=== PATIENT | female | born 1990 | race Caucasian/White ===

== ENCOUNTER 2023-03-29 09:13 | Observation (INO) | payer BC, SELFPAY ==
[2023-03-29 09:55] VITALS: BP 134/81; PULSE 91
[2023-03-29 10:00] VITALS: BP 134/89; PULSE 99
[2023-03-29 10:07] VITALS: BMI 31.2
--- NOTE | 2023-03-29 10:08 | LDADM ---
This patient, Carol Velarde, was admitted to [facility] on 03/29/23 at 09:13. Plans for labor, pain management and were discussed with patient. Patient/family oriented to hospital policies and general routines including ID bracelet, bed and alarms, visiting hours, pain management, procedures, bathroom and other care routines, personal items, smoking policy, room service/diet and guest tray routines, infant security routines, and visiting hours. Patient/Family are encouraged to report perceived risks to care and to ask questions if they do not understand what they are told or what they should do. See OBIX for further documentation.
[2023-03-29 10:12] LABS: Appearance Urine Clear (Clear); Bacteria Urine Rare /hpf; Bilirubin Urine Negative (Negative); Blood Urine Negative (Negative); Color Urine Yellow (Yellow); Glucose Urine UA Negative (Negative); Ketones Urine Negative (Negative); Leukocyte Esterase Ur Trace LEU/UL (Negative); Nitrate Urine Negative (Negative); Non Pathogenic Casts 0-2; Protein Urine Negative (Negative); RBC Urine 0-2 /hpf (0-2); Specific Grav Ur 1.008 (1.001-1.035); Squamous Epithelial Cell Urine None seen /hpf (Few); Urobilinogen Urine 0.2 mg/dL (<2.0); WBC Urine 0-5 /hpf; pH Urine 6.5 (5.0-9.0)
[2023-03-29 10:15] VITALS: BP 127/81; PULSE 89
[2023-03-29 10:30] VITALS: BP 127/76; PULSE 84
[2023-03-29 10:36] LABS: Fetal Fibronectin Negative
[2023-03-29 10:39] LABS: Add Urine Microscopic? YES
--- NOTE | 2023-03-29 10:47 | PC.NURSE ---
Patient admitted for observation with complaints of leaking fluid, abdominal cramping, and pressure. Orders received from office for ROM+, FFN, UA, and NST. Spoke on phone with CNM at 1044 regarding patient's lab/test results. Notified provider that patient has continuous uterine irritability with abdominal cramping she is rating 3/10 on the pain scale but tracing is reassuring. Verbal orders received for 30mg Procardia XL PO once and orders to perform a cervical check.
[2023-03-29] MEDS: NIFEdipine 30 MG TAB.ER.24 PO (10:53)
--- NOTE | 2023-03-29 12:11 | PC.NURSE ---
Patient has less uterine irritability per toco. Patient states the cramping has improved and isn't lasting as long as it was. Called CNM and verbal orders given for discharge with new prescription for 30 mg Procardia XL daily x7 days and to follow up with office in one week. Patient agrees with plan of care and has no questions at this time.
--- NOTE | 2023-04-01 17:08 | PM.OBTRLD ---
OB - Triage/Final Diagnosis Visit Information Date of evaluation: 03/29/23 Reason for evaluation: threatened labor Comments/Additional reasons for admission: I have assessed the risk for this patient, Carol Velarde, and determined that she would benefit from observation care. Evaluation Laboratory results: Laboratory Tests 03/29/23 09:43 Urine Color Yellow Urine Appearance Clear Urine pH 6.5 Ur Specific [place] 1.008 Urine Protein Negative Urine Glucose (UA) Negative Urine Ketones Negative Ur Blood (Man) Negative Urine Nitrate Negative Urine Bilirubin Negative Urine Urobilinogen 0.2 Leukocyte Esterase Rfl Trace H Urine RBC 0-2 Urine WBC 0-5 Ur Squamous Epith Cells None seen Urine Bacteria Rare Urine Casts 0-2 Fibronectin Negative
== END 2023-03-29 12:30 | disposition home or self-care (01) ==
PROVIDERS: Advanced Practice Midwife; Admitting Provider Obstetrics & Gynecology; PCP Physician Assistant; Visit Provider Obstetrics & Gynecology
DX: O47.03 False labor before 37 completed weeks of gestation, third trimester (principal); Z3A.32 32 weeks gestation of pregnancy
CPT/HCPCS: 81001; 82731; 84112; A9270; G0378; G0379

== ENCOUNTER 2023-05-01 12:31 | Outpatient (CLI) | payer BC, SELFPAY ==
[2023-05-01 13:08] LABS: Basophils Percent Auto 0.2 % (0.2-1.2); Eosinophils Absolute Auto 0.1 K/mm3 (0-0.3); Eosinophils Percent Auto 0.6 % (0-4.4); Hematocrit 36.6 % (37.0-47.0); Hemoglobin 11.7 g/dL (12.0-15.0); Immature Granulocyte Absolute 0.16 K/mm3 (0.00-0.031); Immature Granulocyte Percent A 1.2 % (0-0.5); Lymphocytes Absolute Auto 1.86 K/mm3 (0.9-3.2); Lymphocytes Percent Auto 14.4 % (18.3-44.2); Mean Corpuscular Hemoglobin 30.6 pg (26-34); Mean Corpuscular Volume 95.8 fl (80-100); Mean Platelet Volume 10.9 fl (7.4-10.4); Monocytes Absolute Auto 0.9 K/mm3 (0.1-0.6); Monocytes Percent Auto 6.7 % (2.6-8.5); Neutrophils Absolute Auto 9.9 K/mm3 (1.3-6.7); Neutrophils Percent Auto 76.9 % (45.5-73.1); Platelet Count Result 280 k/mm3 (150-375); Red Blood Count 3.82 M/mm3 (4.2-5.4); Red Cell Distribution Width 14.4 % (11.5-14.5); White Blood Count 12.9 K/mm3 (4.5-10.0)
[2023-05-01 13:16] VITALS: BP 118/82; PULSE 82
[2023-05-01 13:16] LABS: Alanine Aminotransferase 25 U/L (6-35); Albumin Level 3.6 g/dL (3.5-5.1); Alkaline Phosphatase 100 U/L (38-126); Anion Gap 10 mmol/L (8-16); Aspartate Amino Transferase 28 U/L (14-36); Bilirubin,Total 0.9 mg/dL (0.2-1.3); Blood Urea Nitrogen 12 mg/dL (7-17); Calcium 8.6 mg/dL (8.4-10.2); Carbon Dioxide 14 mmol/L (22-30); Chloride 105 mmol/L (98-107); Estimated Glomerular Filt Rate > 60; Glucose 114 mg/dL (65-110); Potassium 3.7 mmol/L (3.4-5.0); Sodium 129 mmol/L (137-145); Uric Acid 3.4 mg/dL (2.5-7.5)
[2023-05-01 13:17] LABS: Creatinine Urine 46.1 mg/dL; Total Protein Urine Random 14 mg/dL
[2023-05-01 13:19] LABS: Appearance Urine Cloudy (Clear); Bacteria Urine 2+ /hpf; Bilirubin Urine Negative (Negative); Blood Urine 2+ (Negative); Color Urine Yellow (Yellow); Glucose Urine UA Negative (Negative); Ketones Urine Negative (Negative); Leukocyte Esterase Ur 2+ LEU/UL (NEGATIVE); Need Manual Microscopic Reviewed; Nitrate Urine Negative (Negative); Protein Urine Negative (Negative); RBC Urine 0-2 /hpf (0-2); Specific Grav Ur 1.013 (1.001-1.035); Squamous Epithelial Cell Urine Occasional /hpf (Few); Urobilinogen Urine 0.2 mg/dL (<2.0); WBC Urine 21-50 /hpf (0-3)
[2023-05-01 13:20] LABS: Add Urine Microscopic? YES
[2023-05-01 13:30] VITALS: BP 122/80; PULSE 85
[2023-05-01 13:46] VITALS: BP 121/79; PULSE 66
[2023-05-01 14:01] VITALS: BP 127/82; PULSE 79
[2023-05-01 14:14] VITALS: BP 122/80; PULSE 85
== END 2023-05-01 14:16 | disposition home or self-care (01) ==
LOC: ANHOBOP 12:35 → ANHOBPP 12:36
PROVIDERS: PCP Physician Assistant; Visit Provider Obstetrics & Gynecology
DX: O13.9 Gestational [pregnancy-induced] hypertension without significant proteinuria, unspecified trimester (principal); Z3A.00 Weeks of gestation of pregnancy not specified
CPT/HCPCS: 36415; 59025; 80053; 81001; 82570; 84156; 84550; 85025; 87086; 99199

== ENCOUNTER 2023-05-03 06:00 | Inpatient (IN) | payer BC, SELFPAY ==
[2023-05-03] VITALS (145 sets, daily range): BP systolic 98–154; BP diastolic 55–107; PULSE 57–114; RESP 15–16; TEMP 36.6–37; O2SAT 98–100; BMI 32.5
--- NOTE | 2023-05-03 06:00 | LDADM ---
This patient, Carol Velarde, was admitted to Labor/Delivery/Recovery 109 on 05/03/23 at 06:00. Plans for labor, pain management and were discussed with patient. Patient/family oriented to hospital policies and general routines including ID bracelet, bed and alarms, visiting hours, pain management, procedures, bathroom and other care routines, personal items, smoking policy, room service/diet and guest tray routines, security routines, and visiting hours. Patient/Family are encouraged to report perceived risks to care and to ask questions if they do not understand what they are told or what they should do. See OBIX for further documentation.
[2023-05-03 07:17] LABS: Basophils Absolute Auto 0.1 K/mm3 (0.0-0.1); Basophils Percent Auto 0.4 % (0.2-1.2); Eosinophils Absolute Auto 0.1 K/mm3 (0-0.3); Eosinophils Percent Auto 0.7 % (0-4.4); Hemoglobin 11.2 g/dL (12.0-15.0); Immature Granulocyte Absolute 0.17 K/mm3 (0.00-0.031); Immature Granulocyte Percent A 1.4 % (0-0.5); Lymphocytes Absolute Auto 1.94 K/mm3 (0.9-3.2); Lymphocytes Percent Auto 16.1 % (18.3-44.2); Mean Corpuscular HGB Conc 32.9 g/dl (32-36); Mean Corpuscular Hemoglobin 31.4 pg (26-34); Mean Corpuscular Volume 95.2 fl (80-100); Mean Platelet Volume 11.1 fl (7.4-10.4); Monocytes Absolute Auto 0.9 K/mm3 (0.1-0.6); Monocytes Percent Auto 7.2 % (2.6-8.5); Neutrophils Percent Auto 74.2 % (45.5-73.1); Platelet Count Result 275 k/mm3 (150-375); Red Blood Count 3.57 M/mm3 (4.2-5.4); Red Cell Distribution Width 14.4 % (11.5-14.5); White Blood Count 12.1 K/mm3 (4.5-10.0)
[2023-05-03] MEDS: miSOPROStol 25 MCG TABLET VAGINAL ×2 (07:17→11:34)
--- NOTE | 2023-05-03 07:18 | PM.IMHP ---
H&P: HPI History of Present Illness Date/Time: 05/03/23 07:18 Chief Complaint: induction of labor Narrative: Carol is a 33yo G1 at 37.0 IOL for PreE. 24hr urine was 420. Denies SINHA/BV/EP, but has had some floaters for a couple days. Labs all normal except protein. Baby also followed for SGA, last 12%. GBS neg. Review of Systems Review of Systems: All systems reviewed & are unremarkable except as noted in HPI and below [facility] Family History Family History (Updated 04/29/23 @ 15:43 by Triny Celeste RN) Other Patient denies significant medical history Social History Social History Substance use: never Lack of Transportation: No Lack of Food: Never True Current Housing: I Have Housing Concerned About Future Housing: No Difficulty Paying Gas/Electric Bills: No Difficulty Paying for Meds: No Currently Unemployed: No Education: Associate Degree Difficulty w/ Childcare or Family Care: No Spiritual care concerns: No Meds Home Medications and Allergies Home Medications Medication Instructions Recorded Confirmed Type prenat.vits,mandi,[id number]-puzkw 1 tablet PO DAILY 03/29/23 03/29/23 History Allergies Allergy/AdvReac Type Severity Reaction Status Date / Time No Known Allergies Allergy Verified 03/29/23 10:12 Vital Signs Vital Signs - 24 hr 05/03/23 06:55 05/03/23 07:00 Pulse Rate 90 95 Blood Pressure 131/87 126/92 H Exam Const: General: no acute distress Resp: Effort & Inspection: normal respiratory effort Auscultation: clear to auscultation bilaterally Cardio: Rate: regular rate Rhythm: regular rhythm GI: GI Palp: Yes Soft to palpation Extrem: General: normal to inspection Assessment and Plan Assessment and plan (1) Pre-eclampsia, mild: Code(s): O14.00 - Mild to moderate pre-eclampsia, unspecified trimester Status: Acute (2) Encounter for induction of labor: Code(s): Z34.90 - Encounter for supervision of normal , unspecified, unspecified trimester Status: Acute Plan cytotec x2, hopefully then pitocin GBS neg FHT category 1 monitor for severe features for magnesium BPs wnl or mildly elevated so far labs pending this am
[2023-05-03 07:29] LABS: Uric Acid 3.9 mg/dL (2.5-7.5)
[2023-05-03 07:45] LABS: Alanine Aminotransferase 25 U/L (6-35); Albumin Level 3.3 g/dL (3.5-5.1); Alkaline Phosphatase 99 U/L (38-126); Anion Gap 8 mmol/L (8-16); Aspartate Amino Transferase 31 U/L (14-36); Bilirubin,Total 0.7 mg/dL (0.2-1.3); Blood Urea Nitrogen 11 mg/dL (7-17); Calcium 8.3 mg/dL (8.4-10.2); Carbon Dioxide 17 mmol/L (22-30); Chloride 109 mmol/L (98-107); Estimated Glomerular Filt Rate > 60; Glucose 124 mg/dL (65-110); Potassium 3.2 mmol/L (3.4-5.0); Sodium 134 mmol/L (137-145)
[2023-05-03 11:03] LABS: Rapid Plasma Reagin Non-Reactive (NonReactive)
--- NOTE | 2023-05-03 14:17 | PC.NURSE ---
0955 - Introductions were made and mother shared how she would like to feed her baby with and possibly pump/feed. Encouraged mother to place infant [id number] until the first feeding if is stable and to wait on the weight to help stabilize, reduce infant stress, and improve latching by allowing time to explore parent's chest using instincts. Education was shared on how to protect her milk supply with latching and/or using hand expression to remove milk if infant doesn't latch in the first hour, then finger feed colostrum to the infant to preserve breast focus. Demonstration given on how to hand express using tool. Resources provided with educational trifold for bonding and feeding . Parents voiced understanding of information and to call if there is a request for assistance.
[2023-05-03] MEDS: LACTATED RINGERS 1,000 ML 125 ML IV CONT ×3 (15:57→23:07)
--- NOTE | 2023-05-03 17:39 | WPDANESEPP ---
Anes - Eval Pre Procedure Procedure: Labor epidural Date/Time: 05/03/23 17:39 Surgeon: MINA Preop Diagnosis: Abdominal pain with contractions Pre Op Diagnosis: Induction of Labor Patient Data Age: 33 Gender: F Height: 1.55 m Weight: 78 kg Last Vital Signs Temp 97.9 F 05/03/23 09:58 Pulse 66 05/03/23 17:30 BP 150/80 H 05/03/23 17:30 O2 Del Method Room Air 05/03/23 08:00 Allergies Allergy/AdvReac Type Severity Reaction Status Date / Time No Known Allergies Allergy Verified 03/29/23 10:12 Home Medications Medication Instructions Recorded Confirmed Type prenat.vits,mandi,[id number] 1 tablet PO DAILY 03/29/23 05/03/23 History Laboratory Tests 05/03/23 05/03/23 06:51 06:52 WBC 12.1 H K/mm3 (4.5-10.0) RBC 3.57 L M/mm3 (4.2-5.4) Hgb 11.2 L g/dL (12.0-15.0) Hct 34.0 L % (37.0-47.0) MCV 95.2 fl (80-100) MCH 31.4 pg (26-34) MCHC 32.9 g/dl (32-36) RDW 14.4 % (11.5-14.5) Plt Count 275 k/mm3 (150-375) MPV 11.1 H fl (7.4-10.4) Immature Gran % (Auto) 1.4 H % (0-0.5) Neut % (Auto) 74.2 H % (45.5-73.1) Lymph % (Auto) 16.1 L % (18.3-44.2) [place] % (Auto) 7.2 % (2.6-8.5) Eos % (Auto) 0.7 % (0-4.4) Baso % (Auto) 0.4 % (0.2-1.2) Lymph # (Auto) 1.94 K/mm3 (0.9-3.2) [place] # (Auto) 0.9 H K/mm3 (0.1-0.6) Eos # (Auto) 0.1 K/mm3 (0-0.3) Baso # (Auto) 0.1 K/mm3 (0.0-0.1) Abs Immat Gran (auto) 0.17 H K/mm3 (0.00-0.031) Absolute Neuts (auto) 9.0 H K/mm3 (1.3-6.7) Absolute Nucleated RBC 0.0 K/mm3 (0.0-0.012) Nucleated RBC % 0.0 % (0.0-0.2) Sodium 134 L mmol/L (137-145) Potassium 3.2 L mmol/L (3.4-5.0) Chloride 109 H mmol/L (98-107) Carbon Dioxide 17 L mmol/L (22-30) Anion Gap 8 mmol/L (8-16) BUN 11 mg/dL (7-17) Creatinine 0.50 L mg/dL (0.7-1.0) Estim Creat Clear Calc Not Reportable Estimated GFR > 60 (59 - ) Glucose 124 H mg/dL (65-110) Uric Acid 3.9 mg/dL (2.5-7.5) Calcium 8.3 L mg/dL (8.4-10.2) Total Bilirubin 0.7 mg/dL (0.2-1.3) AST 31 U/L (14-36) ALT 25 U/L (6-35) Alkaline Phosphatase 99 U/L (38-126) Total Protein 6.0 L g/dL (6.3-8.2) Albumin 3.3 L g/dL (3.5-5.1) RPR Non-reactive (NonReactive) Blood Type O Positive Antibody Screen Negative : gestational age HCG: positive Patient hx anesthesia problems: none Family hx anesthesia problems: none Results Review: All pre-operative results and documents have been reviewed as part of the pre-operative evaluation. [facility] Past Medical History Medical History (Updated 05/03/23 @ 17:39 by Tommy Palomares CRNA) Migraines Overweight (BMI 25.0-29.9) Pre-eclampsia, mild and not yet delivered Family History Family History Other Patient denies significant medical history Social History Social History Smoking status: Never smoker Substance use: never Lack of Transportation: No Lack of Food: Never True Current Housing: I Have Housing Concerned About Future Housing: No Difficulty Paying Gas/Electric Bills: No Difficulty Paying for Meds: No Currently Unemployed: No Education: Associate Degree Difficulty w/ Childcare or Family Care: No Spiritual care concerns: No Exam Day of Procedure 05/03/23 17:39 Patient weight: overweight Airway: Mallampati scale class II
[2023-05-04] VITALS (147 sets, daily range): BP systolic 89–135; BP diastolic 45–90; PULSE 54–121; RESP 15–18; TEMP 36.6–37.4; O2SAT 75–100
[2023-05-04] MEDS: OXYTOCIN 30 UNITS/NS 500 ML 30 UNITS/500 ML BAG IV CONT (00:31)
[2023-05-04] MEDS: LACTATED RINGERS 1,000 ML 125 ML IV CONT (04:59)
[2023-05-04] MEDS: OXYTOCIN 30 UNITS/NS 500 ML 30 UNITS/500 ML BAG 125 UNITS IV CONT (09:22)
--- NOTE | 2023-05-04 09:22 | PM.OBPRVD ---
OB - Delivery Note Procedure Delivery date: 05/04/23 Procedure: Events: Preeclampsia w/o severe features Induction method: AROM and Per Misoprostol Protocol Delivery monitor: External FHT and Internal Uterine Route of delivery: Laceration Description: Other (hymenal) Delivery repair: vicryl Quantitative Blood Loss (ml): 150 Anesthesia type: Epidural Disposition: Floor Narrative: With adequate expulsive efforts by the mother, the baby's head was delivered OA. The baby's anterior shoulder was delivered under the pubic symphysis without difficulty. The posterior shoulder and the rest of the baby delivered without difficulty. The was placed on the mothers chest and suctioned and stimulated. The cord was clamped and cut after 30 seconds. Mother and baby both stable. Baby Date of : 05/04/23 Time of : 08:57 Weeks of gestation at delivery: 37 gender: Female presentation: vertex Placenta delivery description: Spontaneous Cord Vessel Description: 3 Vessels and Delayed Cord Clamping score one minute: 8 score five minutes: 9
[2023-05-04] MEDS: WITCH HAZEL 40 PADS 1 PAD TOPICAL (10:21)
[2023-05-04] MEDS: IBUPROFEN 600 MG TABLET PO ×2 (10:21→21:40)
[2023-05-04] MEDS: BENZOCAINE 20% AER SPR (*SP) 56 GM CAN 1 SPRAY TOPICAL (10:21)
[2023-05-04] MEDS: DOCUSATE SODIUM 100 MG CAPSULE PO (21:40)
[2023-05-05 00:42] VITALS: BP 103/62; PULSE 75; RESP 16; TEMP 36.6; O2SAT 97
[2023-05-05 04:30] VITALS: BP 96/60
[2023-05-05] MEDS: IBUPROFEN 600 MG TABLET PO ×3 (04:40→19:50)
[2023-05-05 09:00] VITALS: BP 119/71; PULSE 88; RESP 16; TEMP 36.7; O2SAT 100
--- NOTE | 2023-05-05 09:30 | WPDANLDPN2 ---
Anes-Prog Note L&D Date/Time: 05/05/23 09:30 Comfortable throughout: labor and delivery Neuraxial method: epidural Epidural/Spinal procedure site: clean & non-tender Neuro status: Neuro function grossly intact. Cardiovascular status: normal Respiratory status: normal Airway patency: baseline Mental status: baseline Post-Op hydration status: normal Vital Signs: Last Vital Signs Temp 97.9 F 05/05/23 00:42 Pulse 75 05/05/23 00:42 Resp 16 05/05/23 00:42 BP 96/60 L 05/05/23 04:30 Pulse Ox 97 05/05/23 00:42 O2 Del Method Room Air 05/04/23 21:44 Pain score (VAS): 0 I/O: Intake & Output 05/04/23 05/05/23 05/05/23 23:59 07:59 15:59 Intake Total 2600 Output Total 2200 Balance -2200 2600 Post-procedural complaints: none Patient feedback: Patient satisfied with anesthetic care.
[2023-05-05] MEDS: WITCH HAZEL 40 PADS 1 PAD TOPICAL (12:53)
[2023-05-05] MEDS: BENZOCAINE 20% AER SPR (*SP) 56 GM CAN 1 SPRAY TOPICAL (12:53)
[2023-05-05 13:30] VITALS: BP 122/79; PULSE 59; RESP 18; TEMP 36.4; O2SAT 99
[2023-05-05 19:18] VITALS: BP 123/80; PULSE 84; RESP 18; TEMP 36.7
[2023-05-05 23:33] VITALS: BP 138/87; PULSE 82; RESP 18; TEMP 36.7
[2023-05-06 04:46] VITALS: BP 107/76; PULSE 76; RESP 18; TEMP 36.9
[2023-05-06] MEDS: MULTIVIT/MIN/PREN/FOL AC/IRON TABLET 1 TAB PO (06:59)
[2023-05-06] MEDS: IBUPROFEN 600 MG TABLET PO (06:59)
[2023-05-06] MEDS: DOCUSATE SODIUM 100 MG CAPSULE PO (06:59)
--- NOTE | 2023-05-06 07:20 | P.PNOB_ITS ---
OB - PN: Subj Subjective Date/time seen: 05/06/23 07:20 Patient comments: no complaints and pain well controlled baby status: doing well [place] feeding status: breast and bottle feeding OB - PN: Obj Data Labs 05/05/23 05:08 05/03/23 06:52 OB - PN A/P Plan day: 2 Plan: routine care and discharge home Comments: FU 1 week BP check Time Spent With Patient Time: Total time spent is greater than 50% in coordination of care (as documented) at patient's floor/unit and/or counseling patient: Time with patient: less than 15 minutes Exam Narrative: NAD abdomen soft, nontender, fundus firm below the umbilicus Extremities nontender, 1+ edema
--- NOTE | 2023-05-06 07:22 | PM.OBDSVD ---
DS: Admitting Diagnosis Discharge Date 05/06/23 Admitting Diagnosis IUP 37w, mild PreEclampsia DS: Discharge Diagnosis Discharge Diagnosis (1) Pre-eclampsia, mild: Code(s): O14.00 - Mild to moderate pre-eclampsia, unspecified trimester Status: Acute (2) , delivered: Code(s): O80 - Encounter for full-term uncomplicated delivery Status: Acute OB - DS: Summary Hospital Course Hospital Course: Carol was admitted for induction of labor at 37w due to mild PreEclampsia. She proceeded to have an uncomplicated vaginal delivery and course. She was normotensive following delivery. She was discharged home on PPD 2. OB Procedures : Ultrasound OB Procedures Intrapartum: Spontaneous Vag Delivery OB Procedures: : None Peripartum Data Infant Delivery Method: Natural Vaginal complications: none Status at Discharge Functional status at discharge: independent ambulation Time Spent with Patient Time attestation: Total time spent providing and/or coordinating discharge services: Exam Narrative: NAD abdomen soft, appropriately tender Ext non tender, 1+ edema Discharge Plan Discharge Attending physician on discharge: Nimisha Kevin Discharging Clinician: Nimisha Kevin Anticipated Discharge Date/Time: 05/06/23 07:21 Patient Disposition: Home, Self-Care Activity: pelvic rest Diet: regular Patient Instructions: Antibiotic Form Stand Alone Forms: General Discharge Information Follow-up/Referrals: Nimisha Kevin MD [Physician] - 1 Week Discharge Medications: Continued prenat.vits,mandi,oab-qovi-psepq Tablet 1 tablet PO DAILY Date of admission: 05/03/23 06:00 Primary Care Provider: KarlieCindy Admitting Provider: Nimisha Kevin Attending physician on admission: Nimisha Kevin Condition: Stable
[2023-05-06 07:35] VITALS: BP 117/75; PULSE 76; RESP 16; TEMP 36.9; O2SAT 100
[2023-05-07 11:22] VITALS: BP 120/77; PULSE 82; RESP 18; TEMP 36.8; O2SAT 100
== END 2023-05-06 11:15 | disposition home or self-care (01) | DRG 807 ==
LOC: ANHLDR 06:03 → ANHOB2 05-04 11:44
PROVIDERS: Admitting Provider Obstetrics & Gynecology; PCP Physician Assistant; Visit Provider Obstetrics & Gynecology
DX: O14.04 Mild to moderate pre-eclampsia, complicating childbirth (principal); Z37.0 Single live birth; O70.0 First degree perineal laceration during delivery; Z3A.37 37 weeks gestation of pregnancy
CPT/HCPCS: 36415; 80053; 84550; 85014; 85018; 85025; 86592; 86850; 86900; 86901; A9270; J2590; J2795; J7120